=== PATIENT | male | born 1960 | race Caucasian/White ===

== ENCOUNTER 2016-09-28 18:28 | Day surgery (SDC) | payer OTHER ==
[~2016-09-28 18:28] MED LIST: ADULT LOW DOSE81 MG PO; ASPIRIN81 M1 PO; ATENOLOL25 MG; CIALIS20 M1 PO; GLUCOPHAGE1000 M1 PO; GLYBURIDE PO; LIPITOR20 M1 PO; LISINOPRIL-HCT1 EAC3 PO; LYRICA50 MG PO; MOTRIN600 MG; NORCO 5-325 TA1 EACH PO; NORCO 7.5/325 T1 TAB PO; PAMELOR25 MG PO; SENNA S TABLET1 TAB PO; SENNA8.6 M PO; SYNTHROID175 MC1 PO; TOPAMAX25 MG PO; ZESTORETIC 10/11 TAB PO; [UNRECOGNIZED DRUG - OTHER] PO
[2016-09-28 19:36] LABS: BASO % 0.1 % (0-2); EOS % 0.2 % (0-7); HCT-HEMATOCRIT 40.8 % (36.0-53.5); HGB-HEMOGLOBIN 14.5 gm/dl (13.5-17.0); IMMATURE GRANULOCYTES ABSOLUTE 0.04 tho/cmm (0-0.03); IMMATURE GRANULOCYTES PERCENT 0.3 % (0-0.3); LYMPH % 8.8 % (20-45); LYMPH ABSOLUTE COUNT 1.4 tho/cmm (0.8-4.5); MCH (MEAN CORPUSCULAR HGB) 31.5 pg (28.0-32.0); MCHC MEAN CORPUSCULAR HGB CONC 35.5 % (32.0-36.0); MCV (MEAN CELL VOLUME) 88.5 fl (82.0-96.0); MEAN PLATELET VOLUME 10.4 cmc (9.4-12.4); MONO % 9.2 % (0-12); MONOCYTE ABSOLUTE COUNT 1.4 tho/cmm (0.0-1.2); NEUTROPHIL ABSOLUTE COUNT 12.7 tho/cmm (1.6-8.0); NEUTROPHIL-AUTOMATED 12.7 tho/cmm (1.6-8.0); NEUTROPHILS % 81.4 % (40-80); PLATELET COUNT 246 tho/cmm (150-450); RED BLOOD COUNT 4.61 mil/cmm (4.40-5.70); RED CELL DISTRIBUTION WIDTH 12.9 % (12.4-16.4); WHITE BLOOD COUNT 15.6 tho/cmm (4.0-10.0)
[2016-09-28 19:58] LABS: ALB/GLOB RATIO 1.1 (0.8-2.0); ALBUMIN 4.2 g/dl (3.5-5.0); ALKALINE PHOSPHATASE 67 U/L (33-138); ALT/SGPT 48 U/L (12-78); BLOOD UREA NITROGEN 28 mg/dl (6-24); CALCIUM 9.2 mg/dl (8.5-10.5); CARBON DIOXIDE-VENOUS 26 mmol/L (22-32); CHLORIDE 98 mmol/l (96-110); CREATININE 2.07 mg/dl (0.60-1.30); GLUCOSE 120 mg/dL (70-110); LIPASE 522 U/L (73-393); SODIUM 135 mmol/L (135-145); eGFR VALUE FOR BLACK 40 mL/Min
[2016-09-28 20:05] LABS: ANION GAP 15 mmol/L (0-20); AST/SGOT 46 U/L (10-40)
[2016-09-28 20:06] LABS: POTASSIUM 4.1 mmol/L (3.7-5.1)
[2016-09-28 20:13] LABS: URINE BILIRUBIN NEGATIVE (NEG); URINE BLOOD MODERATE (NEG); URINE GLUCOSE (UA) NEGATIVE (NEG); URINE KETONE MODERATE (NEG); URINE LEUKOCYTE ESTERASE NEGATIVE (NEG); URINE NITRITE NEGATIVE (NEG); URINE PROTEIN NEGATIVE (NEG); URINE SPECIFIC GRAVITY 1.015 (1.003-1.030)
[2016-09-28 20:14] LABS: URINE APPEARANCE CLEAR; URINE COLOR PALE YELLOW
[2016-09-28 20:21] LABS: URINE EPITHELIAL CELLS 0-1 /[HPF] (0-10); URINE RBC 0-2 /[HPF] (0-5); URINE WBC 0 /[HPF] (0-5)
[2016-09-28 21:23] LABS: PROCALCITONIN 0.07 ng/ml (0.05-0.09)
[2016-09-29] MEDS ORDERED: TYLENOL325 M2 PO (16:17)
[2016-09-29] MEDS ORDERED: LEVAQUIN750 M1 PO (16:25)
== END 2016-09-29 16:55 ==
LOC: EDMED 18:28 → EMR2 22:39 → CAR1 23:11 → ORW 09-29 11:11 → PACU 09-29 12:27 → CAR1 09-29 13:01
PROVIDERS: Emergency Medicine; Family Medicine
PROC: 0T778DZ Dilation of Left Ureter with Intraluminal Device, Via Natural or Artificial Opening Endoscopic (ICD-10-PCS; principal; 2016-09-28)
PROC: BT1FYZZ Fluoroscopy of Left Kidney, Ureter and Bladder using Other Contrast (ICD-10-PCS; 2016-09-28)
DX: N20.1 Calculus of ureter (principal); I10 Essential (primary) hypertension; E11.9 Type 2 diabetes mellitus without complications; E03.9 Hypothyroidism, unspecified; Z79.4 Long term (current) use of insulin; Z79.899 Other long term (current) drug therapy; Z98.890 Other specified postprocedural states
CPT/HCPCS: C1769; C2617; G0378; J0696; J1170; J2405; J7030; Q9958